=== PATIENT | male | born 1975 | race Caucasian/White ===

== ENCOUNTER 2021-11-24 05:58 | Day surgery (SDC) | payer OTHER ==
[~2021-11-24 05:58] MED LIST: Dextrose 5%-0.45% NaCl 1,000 ML IV SCH; Sodium Chloride 0.9% 10 ML Syringe FLUSH PRN; Sodium Chloride 0.9% 10 ML Syringe FLUSH SCH
[2021-11-24] MEDS ORDERED: Midazolam 1 MG/ML 2 ML SDV IV ONE ×7 (05:59→07:16)
[2021-11-24] MEDS ORDERED: fentaNYL 100 MCG/2 ML SDV IV ONE ×4 (05:59→07:19)
[2021-11-24] MEDS ORDERED: Midazolam 1 MG/ML 2 ML SDV ONE (06:10)
[2021-11-24] MEDS ORDERED: fentaNYL 100 MCG/2 ML SDV ONE (06:10)
[2021-11-24 10:04] VITALS: BP 111/61; PULSE 61
== END 2021-11-24 09:15 | disposition home or self-care (01) ==
LOC: DL.ENDO 05:58
PROVIDERS: ATTEND Internal Medicine Gastroenterology
DX: K62.5 Hemorrhage of anus and rectum (principal); K64.8 Other hemorrhoids; F17.210 Nicotine dependence, cigarettes, uncomplicated; F32.A Depression, unspecified; R73.9 Hyperglycemia, unspecified; Z98.890 Other specified postprocedural states
CPT/HCPCS: J2250; J3010; J7042

== ENCOUNTER 2023-06-23 13:36 | Emergency (ER) | payer OTHER ==
[2023-06-23] MEDS ORDERED: Tetracaine HCl/PF 0.5% 4 ML Bottle EYELF ONE (13:51)
[2023-06-23] MEDS ORDERED: Fluorescein 1 MG Ophth Strip EYELF ONE (13:51)
[2023-06-23] MEDS ORDERED: Proparacaine 0.5% Ophth Soln 15 ML Bottle EYELF ONE (13:55)
[2023-06-23 14:03] VITALS: BP 144/94; PULSE 84
[2023-06-23] MEDS ORDERED: Gentamicin 0.3% Ophth Soln 5 ML Bottle EYELF ONE (14:08)
== END 2023-06-23 14:40 | disposition home or self-care (01) ==
LOC: DL.ED 13:36
DX: S05.02XA Injury of conjunctiva and corneal abrasion without foreign body, left eye, initial encounter (principal); Z86.16 Personal history of COVID-19; Z91.040 Latex allergy status; Z91.018 Allergy to other foods; X58.XXXA Exposure to other specified factors, initial encounter
CPT/HCPCS: 99282; 99283; A9270; J3490

== ENCOUNTER 2025-06-25 08:46 | Emergency (ER) | payer BC ==
[2025-06-25] MEDS ORDERED: Sodium Chloride 0.9% 10 ML Syringe FLUSH PRN (09:07)
[2025-06-25 09:14] LABS: BASOPHILS PERCENT AUTO 0.6 % (0.0-1.0); EOSINOPHILS PERCENT AUTO 4.0 % (1.0-3.0); LYMPHOCYTES PERCENT AUTO 20.1 % (20.5-50.1); MONOCYTES PERCENT AUTO 8.9 % (2-8); NEUTROPHILS PERCENT AUTO 66.4 % (42.2-75.2); PLATELET COUNT,PLT 166 10^3/uL (150-450); RED BLOOD CELL COUNT 5.23 10^6/uL (4.6-6.2); WHITE BLOOD CELL COUNT,WBC 6.9 10^3/uL (5.0-10.0)
[2025-06-25] MEDS: Iopamidol 755 Mg/ML 100 ML Bottle IVPUSH ONE (09:26)
[2025-06-25 09:31] LABS: A/G RATIO 1.1; ALANINE AMINOTRANSFERASE,ALT 23.0 U/L (16-63); ASPARTATE AMNIOTRANSFERASE,AST 16.0 U/L (15-37); BILIRUBIN TOTAL 0.4 mg/dL (0.2-1.0); BLOOD UREA NITROGEN,BUN 17.0 mg/dL (7-18); CARBON DIOXIDE,CO2 27.0 mmol/L (21-32); CHLORIDE,CL 103.0 mmol/L (98-107); CREATININE 1.14 mg/dL (0.70-1.30); EST CRCL DRUG DOSING (CG) 80.57 mL/min; ESTIMATED GFR 78.0 mL/min (>=60); GLUCOSE RANDOM 104.0 mg/dL (70-99); POTASSIUM,K 4.1 mmol/L (3.5-5.1); PROTEIN TOTAL,TP 7.2 g/dL (6.4-8.2); SODIUM,NA 139.0 mmol/L (136-145)
[2025-06-25 09:37] LABS: INR 1.0 (0.9-1.2); PTT,PARTIAL THROMBOPLSTIN TIME 29.0 SEC (22.0-34.0)
[2025-06-25 10:36] VITALS: BP 129/90; PULSE 60
== END 2025-06-25 10:19 | disposition home or self-care (01) ==
LOC: DL.ED 08:46
DX: R55 Syncope and collapse (principal); Z91.040 Latex allergy status; Z91.018 Allergy to other foods; Z79.899 Other long term (current) drug therapy; Z86.16 Personal history of COVID-19
CPT/HCPCS: 36415; 70450; 70496; 70498; 80053; 82947; 84484; 85025; 85610; 85730; 93005; 99284; Q9967